=== PATIENT | male | born 1950 | race American Indian/Alaskan Native ===

== ENCOUNTER 2017-03-06 14:30 | Emergency (ER) | payer MEDICARE ==
[2017-03-06] MEDS ORDERED: BENADRYL IV ONE (15:01)
[2017-03-06] MEDS ORDERED: NACL 0.9% 1000 ML 1,000 ML IV ONE (15:01)
[2017-03-06] MEDS ORDERED: PEPCID IV ONE (15:01)
--- NOTE | 2017-03-06 15:03 | Emergency Department Report ---
Chief Complaint: Allergic Reaction Stated Complaint: INSECT BITE Time Seen by Provider: 03/06/17 14:59 - HPI History of Present Illness: PT states he was bit by something 1.5 hrs [employer]. PT States he was at work when he was bit. PT states his throat feels like it is closing and he is having trouble swallowing. - ROS Review of Systems: + swollen throat - Exam Physical Exam: clear nasal post nasal drainage uvula appears boggy pt coughing in triage MSE screening note: Focused history and physical exam performed. Due to findings the following was ordered: meds ED Disposition for MSE Condition: Stable
--- NOTE | 2017-03-06 15:52 | Emergency Department Report ---
ED General Adult HPI - General Chief complaint: Allergic Reaction Stated complaint: INSECT BITE Time Seen by Provider: 03/06/17 14:59 Source: patient Mode of arrival: Ambulatory Limitations: No Limitations - History of Present Illness Initial comments: The patient states that there wasps around and he felt what I would presume to be 3 stings. He felt a sharp burning sensation on his neck and twice on his chest. He noted some neck swelling and some vague difficulty in swallowing. He did not have any dalton dyspnea. He received a protocol of intravenous meds for an allergic reaction by the [facility]. At the time of my encounter the patient's neck had no significant swelling. He was having no difficulty with his secretions nor any oropharyngeal edema. He denied any dyspnea. He had no other complaint. -: Sudden Location: neck, chest Severity scale (0 -10): 0 Quality: burning Consistency: now resolved Improves with: none Worsens with: none Associated Symptoms: denies other symptoms - Related Data Home Medications Medication Instructions Recorded Confirmed Last Taken Latanoprost 0.005% [Xalatan 0.005%] 1 drop OP QPM 03/06/17 03/06/17 03/05/17 Pravastatin Sodium [Pravastatin] 40 mg PO QHS 03/06/17 03/06/17 03/05/17 Allergies Allergy/AdvReac Type Severity Reaction Status Date / Time No Known Allergies Allergy Verified 03/06/17 15:23 ED Review of Systems ROS: Stated complaint: INSECT BITE Other details as noted in HPI Constitutional: denies: chills, fever Eyes: denies: eye pain, eye discharge, vision change ENT: denies: ear pain, throat pain Respiratory: denies: cough, shortness of breath, wheezing Cardiovascular: denies: chest pain, palpitations Endocrine: no symptoms reported Gastrointestinal: denies: abdominal pain, nausea, diarrhea Genitourinary: denies: urgency, dysuria Musculoskeletal: denies: back pain, joint swelling, arthralgia Skin: denies: rash, lesions Neurological: denies: headache, weakness, paresthesias Psychiatric: denies: anxiety, depression Hematological/Lymphatic: denies: easy bleeding, easy bruising ED Past Medical Hx - Past Medical History Previous Medical History?: No - Surgical History Past Surgical History?: No - Social History Smoking Status: Never Smoker Substance Use Type: None - Medications Home Medications: Home Medications Medication Instructions Recorded Confirmed Last Taken Type Latanoprost 0.005% [Xalatan 0.005%] 1 drop OP QPM 03/06/17 03/06/17 03/05/17 History Pravastatin Sodium [Pravastatin] 40 mg PO QHS 03/06/17 03/06/17 03/05/17 History ED Physical Exam - General Limitations: No Limitations General appearance: alert, in no apparent distress - Head Head exam: Present: atraumatic, normocephalic - Eye Eye exam: Present: normal appearance - ENT ENT exam: Present: normal orophraynx, mucous membranes moist, other (patient appears to have a slight facial asymmetry but no paresis) - Neck Neck exam: Present: normal inspection, full ROM, other (there is a tiny punctate area with a few millimeters of erythema and slight edema on the right anterior neck consistent with a sting.). Absent: tenderness, meningismus, lymphadenopathy, thyromegaly - Respiratory Respiratory exam: Present: normal lung sounds bilaterally. Absent: respiratory distress - Cardiovascular Cardiovascular Exam: Present: regular rate, normal rhythm. Absent: systolic murmur, diastolic murmur, rubs, gallop - GI/Abdominal GI/Abdominal exam: Present: soft, normal bowel sounds. Absent: distended, tenderness, guarding, rebound, rigid - Rectal Rectal exam: Present: deferred - Extremities Exam Extremities exam: Present: normal inspection - Back Exam Back exam: Present: normal inspection - Neurological Exam Neurological exam: Present: alert, oriented X3, CN II-XII intact. Absent: motor sensory deficit - Psychiatric Psychiatric exam: Present: normal affect, normal mood - Skin Skin exam: Present: warm, dry, intact, normal color. Absent: rash ED Course Vital Signs 03/06/17 03/06/17 03/06/17 14:58 15:05 15:11 Temperature 98.5 F Pulse Rate 86 87 Respiratory 16 18 Rate Blood Pressure 152/94 156/93 Blood Pressure [Right] O2 Sat by Pulse 100 98 100 Oximetry 03/06/17 03/06/17 03/06/17 15:14 15:19 15:21 Temperature Pulse Rate 86 78 Respiratory 16 13 13 Rate Blood Pressure 156/93 Blood Pressure 156/93 [Right] O2 Sat by Pulse 100 99 98 Oximetry 03/06/17 03/06/17 15:30 15:41 Temperature Pulse Rate 71 67 Respiratory 12 16 Rate Blood Pressure 144/86 144/86 Blood Pressure [Right] O2 Sat by Pulse 99 98 Oximetry - Reevaluation(s) Reevaluation #1: No progression of swelling or erythema. Patient is asymptomatic at this time. 03/06/17 16:55 Critical care attestation.: If time is entered above; I have spent that time in minutes in the direct care of this critically ill patient, excluding procedure time. ED Disposition Clinical Impression: Wasp sting Qualifiers: Encounter type: initial encounter Injury intent: accidental or unintentional Qualified Code(s): T63.461A - Toxic effect of venom of wasps, accidental ( unintentional), initial encounter Disposition: DC-01 TO HOME OR SELFCARE Is pt being admited?: No Does the pt Need Aspirin: No Condition: Stable Instructions: Insect Bite or Sting (ED), Allergies (ED) Additional Instructions: Return any acute change or problem. Observe for any signs of infection. Follow -up with primary care provider. Benadryl [id number] any itching or rash. Referrals: PRIMARY CARE, [Primary Care Provider] - 3-5 Days Time of Disposition: 16:56
[2017-03-06 17:17] VITALS: BP 142/81
== END 2017-03-06 17:17 | disposition home or self-care (01) ==
LOC: ED 14:30
DX: T63.461A Toxic effect of venom of wasps, accidental (unintentional), initial encounter (principal); W57.XXXA Bitten or stung by nonvenomous insect and other nonvenomous arthropods, initial encounter; Y93.89 Activity, other specified; Y99.8 Other external cause status; Y92.89 Other specified places as the place of occurrence of the external cause
CPT/HCPCS: 96361; 96374; 96375; 99282; J1200; J2930; J7030